=== PATIENT | female | born 1965 | race Caucasian/White ===

== ENCOUNTER → 2024-04-16 18:17 | Outpatient (REF) | payer BC, SELFPAY | LOC: RAD 18:17 | PROVIDERS: ATTENDING PHYSICIAN Physician Assistant Medical | DX: G89.29 Other chronic pain (principal) | CPT/HCPCS: 72110 ==

== ENCOUNTER → 2024-09-03 17:49 | Outpatient (REF) | payer BC, SELFPAY | LOC: WDC 17:49 | PROVIDERS: ATTENDING PHYSICIAN Physician Assistant Medical | DX: Z12.31 Encounter for screening mammogram for malignant neoplasm of breast (principal) | CPT/HCPCS: 77063; 77067 ==

== ENCOUNTER 2024-11-13 09:14 | Emergency (ER) | payer BC, SELFPAY ==
[2024-11-13 09:16] VITALS: BP 170/86
[2024-11-13 09:46] LABS: % Basophils 0.3 % (0-2); % Eosinophils 0.1 % (0-6); % Immature Granulocytes 0.4 % (0-0.5); % Lymphocytes 15.6 % (20.5-51.1); % Monocytes 7.1 % (1.7-9.3); % Neutrophils 76.5 % (42.2-75.2); Absolute Lymphocytes 1.6 10^3/uL (1.2-3.4); Absolute Monocytes 0.7 10^3/uL (0.1-0.6); Absolute Neutrophils 7.9 10^3/uL (1.4-6.5); Hematocrit 40.6 % (37.0-47.0); Hemoglobin 13.8 g/dL (12.0-16.0); Mean Corpuscular Hgb 30.9 pg (27.0-31.0); Mean Corpuscular Volume 90.8 fL (81.0-99.0); Mean Platelet Volume 10.5 fL (7.4-10.4); Nucleated Red Blood Cells % 0 %; Platelet Count 236 10^3/uL (130-400); Red Blood Cell Count 4.47 10^6/uL (4.20-5.40); Red Cell Dist. Width 13.4 % (11.5-14.5); White Blood Cell Count 10.3 10^3/uL (4.8-10.8)
[2024-11-13 09:56] LABS: ALT (SGPT) 15 U/L (0-35); AST (SGOT) 16 U/L (14-36); Albumin 4.8 g/dl (3.5-5.0); Alkaline Phosphatase 65 U/L (38-126); Blood Urea Nitrogen 20 mg/dl (7-17); Calcium 9.6 mg/dl (8.4-10.2); Carbon Dioxide 32 mmol/L (22-30); Chloride 95 mmol/L (98-107); Glucose 117 mg/dl (70-99); Potassium 4.6 mmol/L (3.5-5.1); Sodium 136 mmol/L (135-145); Total Bilirubin 0.6 mg/dl (0.2-1.3); Total Protein 8.2 g/dl (6.3-8.2); eGFR > 60.00
--- NOTE | 2024-11-13 10:00 | EDRN ---
Dr. Peñaloza in room w /pt at this time.
--- NOTE | 2024-11-13 10:08 | ED.GENMED ---
History of Present Illness
General
Chief Complaint: Headache
Source: patient
Time Seen by Provider: 11/13/24 09:52
History of Present Illness
History of Present Illness:
59-year-old female presents to the emergency room complaining of 'headache'. Patient's been having pain that appears to be located primarily anterior to his right ear. She began having the pain 4 days ago. Patient was seen at [facility] emergency
room after the pain started. She had a CAT scan but she does not know the results of it. She was started on antibiotics and prednisone. Pain has continued. She denies having any fever or chills. She denies any associated nausea vomiting
diarrhea or constipation. She denies cough, sore throat or shortness of breath. She cannot recall any particular event that started the pain. It just sort of began sometime during the day. No injuries. She does not believe she grinds her teeth.
She does not have a history of TMJ.
Phy Exam
Physical Exam
Physical Exam:
General: Awake, Alert, Oriented X3. No acute distress.
Vitals: unremarkable
Head: Atraumatic
Eyes: Pupils equal, EOMI
Ears: Normal inspection the ears bilaterally, tympanic membranes appear normal bilaterally
Face: There is tenderness to palpation anterior to the ear over the temporomandibular joint. There is mild erythema which the patient states developed from her rubbing the area.
Throat: Airway intact, no exudates
Neck: Trachea midline
Lungs: Clear and equal b/l
Heart: Regular rate, no murmurs
Abd: Soft, Nontender, No pulsatile mass
Rectal:
Neuro: Cranial nerves intact, muscle strength equal bilaterally, cerebellar exam normal
Skin: Warm, dry, no rash
Extremities: pulses equal b/l, no edema
Course
Orders/Labs/Results
Orders:
Orders
11/13/24 09:26
Complete Blood Count/With Diff Urgent
Comprehensive Metabolic Panel Urgent
11/13/24 10:23
Carbamazepine [Tegretol] 200 mg PO NOW STA
Abnormal Lab Results
11/13/24
09:26
MPV 10.5 H fL
(7.4-10.4)
Absolute Neuts (auto) 7.9 H 10^3/uL
(1.4-6.5)
Absolute Monos (auto) 0.7 H 10^3/uL
(0.1-0.6)
Neutrophils % 76.5 H %
(42.2-75.2)
Lymphocytes % 15.6 L %
(20.5-51.1)
Chloride 95 L mmol/L
(98-107)
Carbon Dioxide 32 H mmol/L
(22-30)
BUN 20 H mg/dl
(7-17)
Glucose 117 H mg/dl
(70-99)
11/13/24 09:26
11/13/24 09:26
Vital Signs
Initial and Last Documented VS:
Initial Vital Signs
Temp Pulse Resp BP Pulse Ox
98.9 F 66 20 170/86 99
11/13/24 09:16 11/13/24 09:16 11/13/24 09:16 11/13/24 09:16 11/13/24 09:16
Last Documented Vital Signs
Temp Pulse Resp BP Pulse Ox
98.9 F 64 16 161/75 99
11/13/24 09:16 11/13/24 10:22 11/13/24 10:22 11/13/24 10:22 11/13/24 10:22
MDM/Problems Addressed
Differential Diagnosis Includes:
TMJ, trigeminal neuralgia, zoster
MDM/Problems Addressed:
Patient presents with lancinating pain right face. I would expect a rash to have developed by this point should have been zoster. She does have pain with opening closing her mouth but no history of TMJ. Most likely this is trigeminal neuralgia.
Will start the patient on Tegretol have her follow-up with neurology and her primary care provider
*Pulse Oximetry
Patient hypoxic: no
*Critical Care Note
Total Time (30-74mins, 75-104mins- exclusive of procedures): Not Applicable
ED Attending Note
-
Portions of this chart may have been created with voice recognition software.� Occasional wrong word or��sound alike� substitutions may have occurred due to the inherent limitations of voice recognition software.
Discharge Plan
Departure
Patient Disposition: Home (Routine Discharge)
Date of Disposition: 11/13/24
Time of Disposition: 10:24
Patient with high blood pressure during this ER visit?: No
Condition: Good
Discharge Problem:
Trigeminal neuralgia of right side of face
Instructions: Trigeminal neuralgia
Prescriptions:
New
carbamazepine 200 mg capsule, ER multiphase 12 hr
200 mg PO BID Qty: 30 0RF
Referrals:
Tab Alvarenga MD [Active] -
UNKNOWN - PT DOES,NOT KNOW [Family Provider] -
Interventions
Interventions:
*Risk Screen - Suicide Last Done: 11/13/24 09:16
*General Assessment Last Done: 11/13/24 10:10
*Neglect/Abuse Screening Last Done: 11/13/24 10:12
ED- Fall Risk Assessment Last Done: 11/13/24 10:13
*ED COVID-19 Vaccine History Last Done: 11/13/24 10:10
*Nursing Disposition Last Done: 11/13/24 10:50
ED- Neurological Assessment Last Done: 11/13/24 10:13
Discharge Date and Time
Discharge Date/Time: 11/13/24 10:50
Print Language: TAJIK
--- NOTE | 2024-11-13 10:14 | EDRN ---
Pt states pain is throbbing and shooting. Pain w/ opening and closing her jaw. Unable to chew hard foods. Pt taking tylenol and a methocarbinol (NSAID).
--- NOTE | 2024-11-13 10:16 | EDRN ---
Pt was informed that it is possibly Trigeminal neuralgia.
--- NOTE | 2024-11-13 10:18 | EDRN ---
Dr. Peñaloza in room w/ pt.
[2024-11-13 10:20] VITALS: BMI 29.7
[2024-11-13 10:22] VITALS: BP 161/75
[2024-11-13] MEDS: TEGRETOL 200 MG PO (10:43)
== END 2024-11-13 10:50 | disposition home or self-care (01) ==
LOC: EMR 09:14
PROVIDERS: EMERGENCY PHYSICIAN Emergency Medicine
DX: G50.0 Trigeminal neuralgia (principal)
CPT/HCPCS: 99283; 80053; 85025

== ENCOUNTER → 2024-11-14 12:27 | Outpatient (REF) | payer BC, SELFPAY | LOC: PAVMRI 12:27 | PROVIDERS: ATTENDING PHYSICIAN Physician Assistant Medical | DX: R68.84 Jaw pain (principal) | CPT/HCPCS: 70551 ==

== ENCOUNTER 2024-11-19 22:04 | Inpatient (IN) | payer BC, SELFPAY ==
[2024-11-19] VITALS (7 sets, daily range): BP systolic 122–200; BP diastolic 69–110; BMI 28.9
--- NOTE | 2024-11-19 15:27 | ED.GENMED ---
ED Provider Triage
<Elizabet Seymour PA-C - Last Filed: 11/19/24 15:30>
-
Patient seen by provider in Triage?: Seen in Triage
Attestation: A medical screening examination has been initiated by a qualified medical provider. Based on the assessment performed at this time, it has been determined that an emergent medical condition may exist and the patient has been informed
that further medical evaluation and possible additional diagnostic testing may be needed.
HPI: 59yoF sent in by neurology for concern for encephalitis. Started with R ear pain x 1.5 weeks. No improvement with prednisone. Went to ED and was diagnosed with trigeminal neuralgia. Coworker is a PA who saw some vesicles in her ear and
started her on Valtrex and gabapentin about 4 days ago for shingles. Has reportedly been confused, slurring her words, and trouble with gait since yesterday. Neuro concerned for HSV encephalitis and recommending IV antivirals.
GENERAL: Alert , in no apparent distress
EYE: No visual abnormalities.
NECK: Trachea midline
ENT: No visible abnormalities.
LUNGS: No acute respiratory distress
NEUROLOGICAL: Alert and oriented
SKIN: Skin intact. No visible changes.
MUSCULOSKELETAL: Moving extremities normally
PSYCH: Normal and appropriate interaction.
This is a medical evaluation conducted in person to initiate diagnostic evaluation and provide initial therapeutics. Please see further documentation by the treating clinician.
Patient A&Ox4 in triage. CBC, CMP, TSH, UA, and EKG ordered. Patient had MRI brain 5 days ago which only showed mild R sinusitis.
History of Present Illness
<Elizabet Seymour PA-C - Last Filed: 11/19/24 15:30>
General
Chief Complaint: Change in Mental Status
Time Seen by Provider: 11/19/24 17:49
<Shefali Wray PA-C - Last Filed: 11/19/24 22:35>
General
Source: patient
Exam Limitations: none
History of Present Illness
History of Present Illness:
This is a 59-year-old female with past medical history of hypothyroidism presents emergency department today with concerns of altered mental status and possible zoster encephalitis. About a week and a half ago, patient got a sudden onset of ear
pain and facial pain. She was treated with prednisone. On the , she was seen in our emergency department with concerns of a headache right ear pain and facial pain. She was started on carbamazepine for possible trigeminal neuralgia. Her
symptoms did not improve. She then developed a sudden facial rash on the same side as the ear pain and was diagnosed with shingles by her primary care provider and she was started on Valtrex and gabapentin 300 3 times daily. She started to develop
confusion, short-term memory loss, as well as slurred speech since. Patient is present with her son and states that she has not been acting her normal self. She was referred to neurologist Dr. Bautista with [facility] who she saw this morning
for an appointment and who expressed concern about zoster encephalitis and was sent to the ER for direct admission and IV acyclovir.
Review of Systems
<Shefali Wray PA-C - Last Filed: 11/19/24 22:35>
Review of Systems
All Other Systems: ROS reviewed and negative except as documented in HPI and ROS
Phy Exam
<Shefali Wray PA-C - Last Filed: 11/19/24 22:35>
Physical Exam
Physical Exam:
General: Patient is well appearing and in no acute distress; non-toxic
Skin: Warm and dry, small crusted over lesion noted to right cheek
Head: Normocephalic, atraumatic
Eyes: Sclera non-icteric. EOMs intact. PERRLA.
Ears: No lesions noted within either ear auricle
Cardiac: Regular rate and rhythm, no murmurs
Peripheral Vascular: No lower ext swelling or edema
Pulm: Normal respiratory effort, no wheezes, rales, or rhonchi
Abdomen: No abdominal tenderness to palpation
Neuro: CN II-XII intact, no focal neurologic deficits. No nuchal rigidity.
Psychiatric: Appropriate mood and affect.
Course
<Elizabet Seymour PA-C - Last Filed: 11/19/24 15:30>
Orders/Labs/Results
Orders:
Orders
11/19/24 Dinner
Regular
11/19/24 15:25
Electrocardiogram (*1) Urgent
Reason for Study: Fatigue / Weakness
EKG- Treatment ONCE
11/19/24 15:32
Complete Blood Count/With Diff Urgent
Comprehensive Metabolic Panel Urgent
TSH Reflex To Free T4 Urgent
11/19/24 15:34
Urinalysis Reflex To Culture Urgent
Date Specimen was Collected: 11/19/24
Time Specimen was Collected: 15:33
Urine Microscopic Reflex Cult Urgent
11/19/24 19:01
Acyclovir [Zovirax Injection] 811 mg 0.9% Sodium Chloride 250 ml [Nss] 250 ml IV NOW
11/19/24 19:12
Acid Fast Culture & Smear Urgent
RANJEET Source: Csf
Specimen Description:
CSF Cell Count Urgent
CSF Tube Number: 1
Comment: Tube #1
Spinal Fluid Glucose Urgent
Spinal Fluid Protein Urgent
CSF Culture with Gram Stain Urgent
RANJEET Source: Csf
Specimen Description:
Gram Stain Urgent
RANJEET Source: Csf
Specimen Description:
Meningitis Panel, CSF by PCR Urgent
RANJEET Source: Csf
Specimen Description:
11/19/24 19:45
Blood Culture Q30M
RANJEET Source: Blood/Venous
Specimen Description:
Comment: IF NOT OBTAINED IN ED
11/19/24 20:30
Lyme PCR, DNA [S] Urgent
11/19/24 20:36
Lactic Acid Q4H
Comment: repeat q4 hours x 4 or until less than 2 mmol/L
Blood Culture Q30M
RANJEET Source: Blood/Venous
Specimen Description:
Comment: IF NOT OBTAINED IN ED
11/19/24 21:27
Admit/Transfer Patient As Directed
Co-Sign Provider:
Level of Care: Inpatient admission
Assign to:: Telemetry
Physician / Group: hospitalist
Diagnosis: zoster infection
Reason for Telemetry: CVA/TIA
Date to Stop Telemetry: 11/22/24
Time to Stop Telemetry: 11:00
Reason for Hospitalization: zoster encephalitis
Expected length of stay greater than two midnights?: Yes
ELOS- Estimated Length of Stay in days: 2
I certify the patient meets the requirements for IP care: Yes
Code Status As Directed
Resuscitation Status: Full Code
PRN Pain Medication Management As Directed
May give lesser potent ordered pain med per pt: Yes
preference::
Protocol:: Medication orders for pain may be administered in a
manner that supports deferring to patient preference
when the pt is:
- Requesting an ordered lesser potent pain medication.
Least to most potent pain medications are defined
as: acetaminophen < NSAID < tramadol < opioids
(morphine, oxycodone, hydromorphone).
- Requesting a lesser dose of the same medication IF
ORDERED.
- Requesting a less intrusive route of administration
if both routes are prescribed by the provider (PO <
IV).
11/19/24 21:33
PRN Pain Medication Management As Directed
May give lesser potent ordered pain med per pt: Yes
preference::
Protocol:: Medication orders for pain may be administered in a
manner that supports deferring to patient preference
when the pt is:
- Requesting an ordered lesser potent pain medication.
Least to most potent pain medications are defined
as: acetaminophen < NSAID < tramadol < opioids
(morphine, oxycodone, hydromorphone).
- Requesting a lesser dose of the same medication IF
ORDERED.
- Requesting a less intrusive route of administration
if both routes are prescribed by the provider (PO <
IV).
11/19/24 22:20
Acetaminophen [Tylenol] 650 mg PO Q4HPRN PRN
Bisacodyl [Dulcolax] 10 mg RECTAL [id number] PRN
Docusate W/Senna [Senokot-S] 1 tablet PO BIDPRN PRN
Ondansetron Injectable [Zofran] 4 mg IV Q6HPRN PRN
Oxycodone [Roxicodone] 5 mg PO Q4HPRN PRN
Polyethylene Glycol Powder [Miralax] 17 grams PO DAILYPRN PRN
11/19/24 22:20
MRI Brain [MR Brain With Contrast] Routine
Comment:
Reason For Exam: acute mental status change, encephalitis vs stroke
Recent pill cam endoscopy?: No
Activity As Directed
Activity Level: With Assistance
Neurological Checks As Directed
Frequency: Per unit guidelines
Vital Signs As Directed
Frequency: Per unit guidelines
DX Deep Vein Thrombosis Video Routine
11/20/24 04:00
Acyclovir [Zovirax Injection] 811 mg 0.9% Sodium Chloride 250 ml [Nss] 250 ml IV Q8H
11/20/24 06:00
Basic Metabolic Panel IN AM
Complete Blood Count/No Diff IN AM
Levothyroxine [Synthroid] 75 mcg PO DAILY @ 0600
11/20/24 08:00
Carbamazepine Extended Release [Tegretol Xr (Extended Release)] 200 mg PO BID
11/20/24 18:00
Enoxaparin Sodium [Lovenox] 40 mg SC QPM
11/22/24 11:00
DC Protocol for Telemetry ONCE
Abnormal Lab Results
11/19/24 11/19/24
15:32 15:34
WBC 13.1 H 10^3/uL
(4.8-10.8)
Abs Immat Gran (auto) 0.1 H 10^3/uL
(0-0.05)
Absolute Neuts (auto) 10.3 H 10^3/uL
(1.4-6.5)
Immature Gran % 0.8 H %
(0-0.5)
Neutrophils % 78.4 H %
(42.2-75.2)
Lymphocytes % 16.6 L %
(20.5-51.1)
Sodium 134 L mmol/L
(135-145)
Chloride 96 L mmol/L
(98-107)
Glucose 147 H mg/dl
(70-99)
Ur Occult Blood Reflex 4+ A
(Negative)
Urine RBC 11-15 A /HPF
(0-2)
Urine Bacteria (Reflex) Few A
(Negative)
Urine Albumin (Reflex) 1+ A
(Neg - Trace)
11/19/24 15:32
11/19/24 15:32
Vital Signs
Initial and Last Documented VS:
Initial Vital Signs
Temp Pulse Resp BP Pulse Ox
98.2 F 87 16 200/106 98
11/19/24 15:17 11/19/24 15:17 11/19/24 15:17 11/19/24 15:17 11/19/24 15:17
Last Documented Vital Signs
Temp Pulse Resp BP Pulse Ox
97.8 F 81 16 172/98 99
11/19/24 19:49 11/19/24 19:46 11/19/24 19:46 11/19/24 17:45 11/19/24 17:45
<Shefali Wray PA-C - Last Filed: 11/19/24 22:35>
Orders/Labs/Results
Orders:
Orders
11/19/24 Dinner
Regular
11/19/24 15:25
Electrocardiogram (*1) Urgent
Reason for Study: Fatigue / Weakness
EKG- Treatment ONCE
11/19/24 15:32
Complete Blood Count/With Diff Urgent
Comprehensive Metabolic Panel Urgent
TSH Reflex To Free T4 Urgent
11/19/24 15:34
Urinalysis Reflex To Culture Urgent
Date Specimen was Collected: 11/19/24
Time Specimen was Collected: 15:33
Urine Microscopic Reflex Cult Urgent
11/19/24 19:01
Acyclovir [Zovirax Injection] 811 mg 0.9% Sodium Chloride 250 ml [Nss] 250 ml IV NOW
11/19/24 19:12
Acid Fast Culture & Smear Urgent
RANJEET Source: Csf
Specimen Description:
CSF Cell Count Urgent
CSF Tube Number: 1
Comment: Tube #1
Spinal Fluid Glucose Urgent
Spinal Fluid Protein Urgent
CSF Culture with Gram Stain Urgent
RANJEET Source: Csf
Specimen Description:
Gram Stain Urgent
RANJEET Source: Csf
Specimen Description:
Meningitis Panel, CSF by PCR Urgent
RANJEET Source: Csf
Specimen Description:
11/19/24 19:45
Blood Culture Q30M
RANJEET Source: Blood/Venous
Specimen Description:
Comment: IF NOT OBTAINED IN ED
11/19/24 20:30
Lyme PCR, DNA [S] Urgent
11/19/24 20:36
Lactic Acid Q4H
Comment: repeat q4 hours x 4 or until less than 2 mmol/L
Blood Culture Q30M
RANJEET Source: Blood/Venous
Specimen Description:
Comment: IF NOT OBTAINED IN ED
11/19/24 21:27
Admit/Transfer Patient As Directed
Co-Sign Provider:
Level of Care: Inpatient admission
Assign to:: Telemetry
Physician / Group: hospitalist
Diagnosis: zoster infection
Reason for Telemetry: CVA/TIA
Date to Stop Telemetry: 11/22/24
Time to Stop Telemetry: 11:00
Reason for Hospitalization: zoster encephalitis
Expected length of stay greater than two midnights?: Yes
ELOS- Estimated Length of Stay in days: 2
I certify the patient meets the requirements for IP care: Yes
Code Status As Directed
Resuscitation Status: Full Code
PRN Pain Medication Management As Directed
May give lesser potent ordered pain med per pt: Yes
preference::
Protocol:: Medication orders for pain may be administered in a
manner that supports deferring to patient preference
when the pt is:
- Requesting an ordered lesser potent pain medication.
Least to most potent pain medications are defined
as: acetaminophen < NSAID < tramadol < opioids
(morphine, oxycodone, hydromorphone).
- Requesting a lesser dose of the same medication IF
ORDERED.
- Requesting a less intrusive route of administration
if both routes are prescribed by the provider (PO <
IV).
11/19/24 21:33
PRN Pain Medication Management As Directed
May give lesser potent ordered pain med per pt: Yes
preference::
Protocol:: Medication orders for pain may be administered in a
manner that supports deferring to patient preference
when the pt is:
- Requesting an ordered lesser potent pain medication.
Least to most potent pain medications are defined
as: acetaminophen < NSAID < tramadol < opioids
(morphine, oxycodone, hydromorphone).
- Requesting a lesser dose of the same medication IF
ORDERED.
- Requesting a less intrusive route of administration
if both routes are prescribed by the provider (PO <
IV).
11/19/24 22:20
Acetaminophen [Tylenol] 650 mg PO Q4HPRN PRN
Bisacodyl [Dulcolax] 10 mg RECTAL [id number] PRN
Docusate W/Senna [Senokot-S] 1 tablet PO BIDPRN PRN
Ondansetron Injectable [Zofran] 4 mg IV Q6HPRN PRN
Oxycodone [Roxicodone] 5 mg PO Q4HPRN PRN
Polyethylene Glycol Powder [Miralax] 17 grams PO DAILYPRN PRN
11/19/24 22:20
MRI Brain [MR Brain With Contrast] Routine
Comment:
Reason For Exam: acute mental status change, encephalitis vs stroke
Recent pill cam endoscopy?: No
Activity As Directed
Activity Level: With Assistance
Neurological Checks As Directed
Frequency: Per unit guidelines
Vital Signs As Directed
Frequency: Per unit guidelines
DX Deep Vein Thrombosis Video Routine
11/20/24 04:00
Acyclovir [Zovirax Injection] 811 mg 0.9% Sodium Chloride 250 ml [Nss] 250 ml IV Q8H
11/20/24 06:00
Basic Metabolic Panel IN AM
Complete Blood Count/No Diff IN AM
Levothyroxine [Synthroid] 75 mcg PO DAILY @ 0600
11/20/24 08:00
Carbamazepine Extended Release [Tegretol Xr (Extended Release)] 200 mg PO BID
11/20/24 18:00
Enoxaparin Sodium [Lovenox] 40 mg SC QPM
11/22/24 11:00
DC Protocol for Telemetry ONCE
Abnormal Lab Results
11/19/24 11/19/24
15:32 15:34
WBC 13.1 H 10^3/uL
(4.8-10.8)
Abs Immat Gran (auto) 0.1 H 10^3/uL
(0-0.05)
Absolute Neuts (auto) 10.3 H 10^3/uL
(1.4-6.5)
Immature Gran % 0.8 H %
(0-0.5)
Neutrophils % 78.4 H %
(42.2-75.2)
Lymphocytes % 16.6 L %
(20.5-51.1)
Sodium 134 L mmol/L
(135-145)
Chloride 96 L mmol/L
(98-107)
Glucose 147 H mg/dl
(70-99)
Ur Occult Blood Reflex 4+ A
(Negative)
Urine RBC 11-15 A /HPF
(0-2)
Urine Bacteria (Reflex) Few A
(Negative)
Urine Albumin (Reflex) 1+ A
(Neg - Trace)
11/19/24 15:32
11/19/24 15:32
Vital Signs
Initial and Last Documented VS:
Initial Vital Signs
Temp Pulse Resp BP Pulse Ox
98.2 F 87 16 200/106 98
11/19/24 15:17 11/19/24 15:17 11/19/24 15:17 11/19/24 15:17 11/19/24 15:17
Last Documented Vital Signs
Temp Pulse Resp BP Pulse Ox
97.8 F 81 16 172/98 99
11/19/24 19:49 11/19/24 19:46 11/19/24 19:46 11/19/24 17:45 11/19/24 17:45
Marinalt;Shefali Wray PA-C - Last Filed: 11/19/24 22:35>
MDM/Problems Addressed
Differential Diagnosis Includes:
viral meningitis, zoster encephalitis, medication side affect, stroke
MDM/Problems Addressed:
59-year-old female with past medical history of hypothyroidism who was sent here for possible herpes encephalitis. Her symptoms started with facial pain a week and a half ago developed herpetic rash. She started develop some signs of altered
mental status. She was seen by Dr. Michele Mcmahanthe [facility] neurologist who sent her to emergency department concern for zoster encephalitis, she was sent for direct admission for MRI and IV acyclovir. Reviewed case with infectious disease,
reviewed case with interventional radiology, patient will need LP for further characterization of diagnosis. Patient referred for admission. Case discussed with hospitalist.
Chronic conditions affecting care:
hypothyroidism
<Shefali Wray PA-C - Last Filed: 11/19/24 22:35>
*Pulse Oximetry
Patient hypoxic: no
*Critical Care Note
Total Time (30-74mins, 75-104mins- exclusive of procedures): Not Applicable
Data Reviewed
Review of Other/Old Records Reveals: Records (Reviewed ER physician documentation from 11/13/2024 patient seen for facial pain potential trigeminal) and Discharge Summary (No discharge summaries in [facility] to review)
Source: patient and records
ED Attending Note
<Elizabet Seymour PA-C - Last Filed: 11/19/24 15:30>
-
Portions of this chart may have been created with voice recognition software.� Occasional wrong word or��sound alike� substitutions may have occurred due to the inherent limitations of voice recognition software.
Discharge Plan
Departure
Patient Disposition: Admit
Date of Disposition: 11/19/24
Time of Disposition: 19:02
Admit to: Med/Surg
Presentation/result/management discussed w/ accepting MD/DO: Hospitalist
Patient with high blood pressure during this ER visit?: Yes
Condition: Fair
Discharge Problem:
Altered mental status, Herpes zoster
Interventions
Interventions:
*Risk Screen - Suicide Last Done: 11/19/24 15:17
*General Assessment Last Done: 11/19/24 17:45
*Neglect/Abuse Screening Last Done: 11/19/24 15:17
*ED COVID-19 Vaccine History Last Done: 11/19/24 17:45
ED- Cardiac Assessment Last Done: 11/19/24 20:46
ED- Neurological Assessment Last Done: 11/19/24 20:46
ED- Pulmonary Assessment Last Done: 11/19/24 20:46
ED Swallowing Screen Last Done: 11/19/24 20:46
[2024-11-19 15:43] LABS: % Basophils 0.2 % (0-2); % Immature Granulocytes 0.8 % (0-0.5); % Lymphocytes 16.6 % (20.5-51.1); % Neutrophils 78.4 % (42.2-75.2); Absolute Immature Granulocytes 0.1 10^3/uL (0-0.05); Absolute Lymphocytes 2.2 10^3/uL (1.2-3.4); Absolute Monocytes 0.5 10^3/uL (0.1-0.6); Absolute Neutrophils 10.3 10^3/uL (1.4-6.5); Hematocrit 42.2 % (37.0-47.0); Hemoglobin 14.2 g/dL (12.0-16.0); Mean Corp Hgb Conc. 33.6 g/dL (33.0-37.0); Mean Corpuscular Hgb 30.5 pg (27.0-31.0); Mean Corpuscular Volume 90.8 fL (81.0-99.0); Mean Platelet Volume 9.9 fL (7.4-10.4); Nucleated Red Blood Cells % 0 %; Platelet Count 301 10^3/uL (130-400); Red Blood Cell Count 4.65 10^6/uL (4.20-5.40); White Blood Cell Count 13.1 10^3/uL (4.8-10.8)
[2024-11-19 15:45] LABS: Urine Albumin 1+ (Neg - Trace); Urine Bilirubin Negative (Negative); Urine Character Clear (Clear); Urine Color Yellow; Urine Glucose Negative (Negative); Urine Ketone Negative (Negative); Urine Leukocyte Negative (Negative); Urine Nitrite Negative (Negative); Urine Occult Blood 4+ (Negative); Urine Specific Gravity 1.015 (<1.030); Urine Urobilinogen Negative (Neg - 1+)
[2024-11-19 15:54] LABS: ALT (SGPT) 17 U/L (0-35); AST (SGOT) 17 U/L (14-36); Alkaline Phosphatase 76 U/L (38-126); Blood Urea Nitrogen 15 mg/dl (7-17); Calcium 9.9 mg/dl (8.4-10.2); Carbon Dioxide 28 mmol/L (22-30); Chloride 96 mmol/L (98-107); Glucose 147 mg/dl (70-99); Potassium 3.9 mmol/L (3.5-5.1); Sodium 134 mmol/L (135-145); Total Bilirubin 0.6 mg/dl (0.2-1.3); Total Protein 8.2 g/dl (6.3-8.2); eGFR > 60.00
[2024-11-19 16:08] LABS: Urine Bacteria Few (Negative); Urine Squamous Cell 0-2 /LPF (Few); Urine White Cell 0-2 /HPF (0-5)
[2024-11-19 16:24] LABS: TSH Reflex To Free T4 2.06 uIU/ml (0.47-4.68)
[2024-11-19] MEDS: ZOVIRAX INJECTION 266.22 MG IV (20:00)
[2024-11-19 20:56] LABS: Lactic Acid 1.5 mmol/L (0.7-2.0)
--- NOTE | 2024-11-19 21:18 | HPS.HSE ---
Family Physician
-
Family Physician: Filiberto Blandon
Chief Complaint
-
Memory difficulties
History of Present Illness
This is a 59-year-old with past medical history significant for hypothyroidism presenting to the emergency department with memory difficulties after recent diagnosis of shingles affecting the right ear.
Patient reported that she noticed herpes lesions starting about 5 days ago in the right side of her face and around the ears. She started having facial pain as well. 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
syndrome and started her on gabapentin and valacyclovir. Rash is improved. However in the last few days she has developed some slurred speech confusion and short-term memory loss. Followed up with neurologist Dr. Bautista was concerned about.
Encephalitis and sent her to the emergency department for IV cycle of acyclovir and brain MRI with contrast.
Case reviewed with ID. Acyclovir ordered.
In the ED she was hypertensive to 170/90 with a pulse of 77 satting 99% on room air. CBC was mostly unremarkable but she does have a white count of 13.1. Electrolytes BUN/creatinine were stable. UA was unremarkable.
Medical History
Past Medical History
Past Medical History: Reports Hypothyroidism
Past Surgical History: Reports Orthopedic
Social History
Tobacco: Non-smoker
Alcohol: None
Drug: None
Personal: Single
Living: With Family
Employment: Employed
Family History
Family History: Not pertinent
Allergies / Home Medications
Allergies reflects when Allergies were last updated in [facility].
Home Medications with original date entered in [facility]
Allergy/Medication List:
Allergies
Allergy/AdvReac Type Severity Reaction Status Date / Time
No Known Allergies Allergy Verified 11/19/24 15:20
Home Medications
carbamazepine 200 mg capsule,extended release [id number] 200 mg PO BID #30 caps 11/13/24
Review of Systems
-
History Source: Patient
Constitutional: Reports No Symptoms
EENT: Reports No Symptoms
Respiratory: Reports No Symptoms
Cardiac: Reports No Symptoms
Abdomen/GI: Reports No Symptoms
: Reports No Symptoms
Musculoskeletal: Reports No Symptoms
Skin: Reports No Symptoms
Neurological: Reports Headache
Endocrine: Reports No Symptoms
Hematologic/Lymphatic: Reports No Symptoms
Psych: Reports No Symptoms
Physical Exam
Vital Signs
Vital Signs
Temp Pulse Resp BP Pulse Ox
97.8 F 81 16 172/98 99
11/19/24 19:49 11/19/24 19:46 11/19/24 19:46 11/19/24 17:45 11/19/24 17:45
Physical Exam
General: Well Developed, Well Nourished and Conversant
HEENT: NormoCephalic, Anicteric, Moist mucous membranes, Atraumatic, PERRLA, No Ptosis and Other (right sided crusted lesion with erythematous base just anterior to the ear)
Respiratory: Clear
Cardiac: S1/S2 and Regular Rhythm
Breast: Deferred by me
GI: Soft, Non Tender and Non Distended
Rectal: Deferred by Provider
Genito-urinary: Deferred by me
Musculoskeletal: No Clubbing, No Cyanosis and No Edema
Skin: Warm
Neuro: AO x 3, No Motor Deficits, Cranial Nerves Intact and No Sensory Deficits
Hematologic/Lymphatic: No Lymphadenopathy
Psych: Calm
Laboratory Results
-
11/19/24 15:32
11/19/24 15:32
Laboratory Results
Lactic Acid 1.5 mmol/L (0.7-2.0) 11/19/24 20:36
Total Bilirubin 0.6 mg/dl (0.2-1.3) 11/19/24 15:32
AST 17 U/L (14-36) 11/19/24 15:32
ALT 17 U/L (0-35) 11/19/24 15:32
Alkaline Phosphatase 76 U/L (38-126) 11/19/24 15:32
Data Reviewed
-
Lab Data: Labs Reviewed by me
Old Records: Reviewed
Impression/Plan
-
IMPRESSION:
Patient with salcedo urbina and episodes of memory loss, confusion and speech difficulty concerning for herpes encephalitis
PLAN:
1. Herpes Zoster encephalitis
- admit to med/surg
- MRI with/wo contrast
- continue acyclovir
- IR consult for LP - cell count, culture, protein, glucose, viral panel ordered
- continue tegretol 200mg bid
- ID consult
DVT PPx - lovenox sq
Code status - full code
[2024-11-20] VITALS (14 sets, daily range): BP systolic 85–154; BP diastolic 58–94
[2024-11-20] MEDS: ZOVIRAX INJECTION 266.22 MG IV ×2 (04:18→12:47)
[2024-11-20] MEDS: SYNTHROID 75 MCG PO (06:25)
[2024-11-20 07:25] LABS: Blood Urea Nitrogen 14 mg/dl (7-17); Carbon Dioxide 26 mmol/L (22-30); Chloride 103 mmol/L (98-107); Estimated Creatinine Clearance 92 ml/min; Glucose 82 mg/dl (70-99); Potassium 3.7 mmol/L (3.5-5.1); Sodium 138 mmol/L (135-145); eGFR > 60.00
[2024-11-20 07:33] LABS: Hematocrit 32.8 % (37.0-47.0); Mean Corp Hgb Conc. 33.5 g/dL (33.0-37.0); Mean Corpuscular Hgb 31.3 pg (27.0-31.0); Mean Corpuscular Volume 93.4 fL (81.0-99.0); Mean Platelet Volume 9.9 fL (7.4-10.4); Platelet Count 221 10^3/uL (130-400); Red Blood Cell Count 3.51 10^6/uL (4.20-5.40); Red Cell Dist. Width 14.2 % (11.5-14.5); White Blood Cell Count 9.4 10^3/uL (4.8-10.8)
--- NOTE | 2024-11-20 07:40 | W.PN.HOSP.TC ---
Today's Communication/Plan
-
Continue IV Acyclovir
LP
EEG
Assessment / Plan
Assessment / Plan
Physical Exam
General: Well Developed, Well Nourished and Conversant
HEENT: Normocephalic, Moist mucous membranes. Right sided crusted lesion with erythematous base just anterior to the ear.
Respiratory: Clear
Cardiac: S1/S2 and Regular Rhythm
GI: Soft, Non Tender and Non Distended. Positive bowel sounds.
Musculoskeletal: No Cyanosis and No Edema
Skin: Warm. Dry.
Neuro: AO x 3, No Motor Deficits, Cranial Nerves Intact and No Sensory Deficits
Psych: Calm
Assessment/Plan
Patient with salcedo woo and episodes of memory loss, confusion and speech difficulty concerning for herpes encephalitis
Encephalopathy(vascular, infectious, toxic?)
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
- admit to med/surg
- MRI with/wo contrast
- continue acyclovir
- IR consult for LP - cell count, culture, protein, glucose, viral panel ordered
- continue tegretol 200mg bid
- Check Tegretol level
- ID consult
- Patient sees neurologist Dr. Melo Bautista outpatient, consulted inpatient neurology here given complex neuro case
- Aspirin 81 mg daily
- CTA head and neck
- Routine EEG
DVT PPx - lovenox sq
Code status - full code
Anticipated Discharge: > 48 hours
Subjective/Interval History
-
Date of Service: November 20, 2024
Patient was seen and examined. She reported continued headache symptoms.
Objective Data
-
Labs:
Laboratory Results
11/20/24 11/20/24
06:43 07:14
WBC 9.4
Hgb 11.0 L D
Hct 32.8 L
Plt Count 221 D
PT Pending
INR Pending
Sodium 138
Potassium 3.7
Chloride 103
Carbon Dioxide 26
BUN 14
Creatinine 0.7
Glucose 82
Calcium 8.0 L D
Vital Signs:
Vital Signs
Temp Pulse Resp BP Pulse Ox
97.5 F 76 16 120/72 99
11/20/24 06:52 11/20/24 06:45 11/20/24 06:52 11/20/24 06:00 11/19/24 17:45
[2024-11-20] MEDS: TEGRETOL XR (EXTENDED RELEASE) 200 MG PO ×2 (08:14→20:28)
--- NOTE | 2024-11-20 08:53 | CON.NEURO ---
Consultation
Order
Date of Consultation: 11/20/24
Requesting Provider: Tulio Carmona MD
Reason for Consult: Israel-Urbina syndrome
Neurology Consultation Note.
HPI: This is a 59-year-old woman who presented to [facility] on 11/19/2024 with encephalopathy. Ms. Mena reports gradual in onset dysarthria and expressive dysphasia which started yesterday.
No reports of headaches, fever, tinnitus, ear pain change in vision, strength, balance or sensation, neck stiffness.
Ms. Mena was seen at [facility] ER on 11/13/2024 with right ear pain. Brain MRI at that time was unremarkable. She was started on Tegretol that was subsequently switched to gabapentin for pain control. The patient recalls developing
right periauricular vesicular rash (unable to specify the timing).
ER VS: 200/106, 87, afebrile.
EKG: NSR, QTc Int : 446 ms
PDMP:Tramadol Hcl 50 Mg 30 tabs filled in on 07/31/2024
Labs: WBCs�13.1, sodium�134, glucose�147, normal TSH, UA�positive for albumin bacteria, RBCs,
Brain MRI�increased FLAIR signal intensity throughout the sulci of both cerebral hemispheres which appears most conspicuous in the right frontal and parietal lobes. No abnormal leptomeningeal enhancement.
PMH: hypothyroidism, OA, vitamin D deficiency,
PSH: B/L JAMES 07/23/24, L5-S1 JAMES 06/30/24
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
FH: Father from cancer, mother from COVID
All: Nitrofurantoin, gabapentin
ROS: Constitutional: Negative. Negative for chills, fever and unexpected weight change.
HENT: Positive for recent right ear pain
Eyes: Negative. Negative for photophobia, pain and visual disturbance.
Respiratory: Negative for cough, choking and shortness of breath.
Cardiovascular: Negative for chest pain, palpitations and leg swelling.
Gastrointestinal: Negative for abdominal pain and vomiting.
Endocrine: Negative. Negative for cold intolerance.
Genitourinary: Negative for dysuria, flank pain and urgency.
Musculoskeletal: Negative for back pain, gait problem, neck pain and neck stiffness.
Skin: Positive for resolved right periauricular vesicular rash
Allergic/Immunologic: Negative. Negative for immunocompromised state.
Neurological: Positive for dysarthria, encephalopathy
Psychiatric/Behavioral: Negative for behavioral problems, confusion and hallucinations.
General: Well developed. In no acute distress.
Cardio: Regular rate and rhythm without murmur. Extremities are without cyanosis or edema.
Neuro:
Mental Status: Alert, oriented to person, place, date was incorrect but close. Increased processing time. Poor attention and preserved comprehension. Follows complex requests across the midline. Comprehension, naming, and repetition intact.
Cranial Nerves: Pupils are equally round and reactive to light. EOMs full. Visual marinelli full to confrontation. No ptosis. No nystagmus. V1-V3 intact to light touch and pinprick bilaterally, symmetric. Face symmetric. Normal hearing AU. The
palate elevated well. SCMs and traps 5/5. Tongue midline. Moderate dysarthria.
Motor: Normal bulk and tone. No pronator or arm drift. Strength 5/5 throughout. No clonus.
Reflexes: 3+ throughout. Positive Suman's bilaterally. Jaw jerk�equivocal
Sensory: Normal vibration at the toes
Coordination: No dysmetria or tremor.
Gait: deferred
Skin�hemorrhagic dry rash in anterior auricular region.
Assessment and Plan:
I. Encephalopathy(vascular, infectious, toxic?)
II. Pathological hyperreflexia
III. Encephalopathy(vascular, toxic?)
-Continue Telemetry monitoring
-Cautious lowering of BP by approximately 15% during the first 24 hours is SBP >220 mmHg or diastolic blood pressure >120 mmHg
-Start ASA 81 mg QD indefinitely
-Please check Tegretol level
-CTA head and neck
-Routine EEG
-CSF(OP/CP, cell count, protein, glucose, meningitis, encephalitis panels)
-ID consult
-DVT prophylaxis.
I personally reviewed all radiology and labs along with past medical records pertinent to current medical problems. Total time spent in patient care is 60 minutes.
Thank you for allowing us to participate in the care of this patient. We will continue to follow. Please do not hesitate to contact us with any questions or concerns.
Subjective/Objective
Subjective Data
Date of Service: November 20, 2024
Objective Data
Vital Signs
Temp Pulse Resp BP Pulse Ox
36.6 C 76 13 149/86 99
11/20/24 08:27 11/20/24 08:17 11/20/24 08:17 11/20/24 08:17 11/19/24 17:45
Lab Results
11/20/24 06:43
11/20/24 06:43
Sodium 138 mmol/L (135-145) 11/20/24 06:43
Potassium 3.7 mmol/L (3.5-5.1) 11/20/24 06:43
BUN 14 mg/dl (7-17) 11/20/24 06:43
Glucose 82 mg/dl (70-99) 11/20/24 06:43
Calcium 8.0 mg/dl (8.4-10.2) L D 11/20/24 06:43
Patient Allergies
No Known Allergies Allergy (Verified 11/19/24 15:20)
Medications
-
Active Medications
Generic Name Dose Route Start Last Admin
Trade Name Freq PRN Reason Stop Dose Admin
Acetaminophen 650 mg 11/19/24 22:20
Acetaminophen 325 Mg Tablet PO 12/17/24 22:19
Q4HPRN PRN
mild pain/RODGERS/temp> 100.4F
Bisacodyl 10 mg 11/19/24 22:20
Bisacodyl 10 Mg Rectal Suppository RECTAL 12/17/24 22:19
[id number] PRN
constipation
Carbamazepine 200 mg 11/20/24 08:00 11/20/24 08:14
Carbamazepine 100 Mg Extended Release (12 Hour) Tablet PO 12/18/24 07:59 200 mg
BID RIVERA Administration
Enoxaparin Sodium 40 mg 11/20/24 18:00
Enoxaparin Sodium 40 Mg/0.4 Ml Syringe SC 12/18/24 17:59
QPM RIVERA
Acyclovir Sodium 811 mg/ 266.22 mls @ 250 mls/hr 11/20/24 04:00 11/20/24 04:18
Sodium Chloride IV 11/30/24 03:59 266.22 mls
Q8H RIVERA Administration
Levothyroxine Sodium 75 mcg 11/20/24 06:00 11/20/24 06:25
Levothyroxine 75 Mcg Tablet PO 12/18/24 05:59 75 mcg
DAILY @ 0600 RIVERA Administration
Ondansetron HCl 4 mg 11/19/24 22:20
Ondansetron 4 Mg/2 Ml Vial IV 12/17/24 22:19
Q6HPRN PRN
nausea and vomiting
Oxycodone HCl 5 mg 11/19/24 22:20
Oxycodone 5 Mg Regular Release Tablet PO 12/03/24 22:19
Q4HPRN PRN
moderate pain
Polyethylene Glycol 17 grams 11/19/24 22:20
Polyethylene Glycol Powder 17 Grams Packet PO 12/17/24 22:19
DAILYPRN PRN
constipation
Senna/Docusate Sodium 1 tablet 11/19/24 22:20
Docusate W/Senna (Karly-Colace) Tablet PO 12/17/24 22:19
BIDPRN PRN
constipation
Sodium Chloride 0 flush 11/19/24 23:00
Sodium Chloride 0.9% (Flush) Syringe IV 12/17/24 22:59
PER PROTOCOL RIVERA
Home Medications
�Medication �Instructions �Recorded
carbamazepine 200 mg 200 mg PO BID #30 caps 11/13/24
capsule,extended release [id number]
Vital Signs and Labs
-
Vital Signs and Labs:
Vital Signs
Temp Pulse Resp BP Pulse Ox
36.6 C 76 13 149/86 99
11/20/24 08:27 11/20/24 08:17 11/20/24 08:17 11/20/24 08:17 11/19/24 17:45
Lab Results
11/20/24 06:43
11/20/24 06:43
Sodium 138 mmol/L (135-145) 11/20/24 06:43
Potassium 3.7 mmol/L (3.5-5.1) 11/20/24 06:43
BUN 14 mg/dl (7-17) 11/20/24 06:43
Glucose 82 mg/dl (70-99) 11/20/24 06:43
Calcium 8.0 mg/dl (8.4-10.2) L D 11/20/24 06:43
Medications
-
Medications:
Generic Name Dose Route Start Last Admin
Trade Name Freq PRN Reason Stop Dose Admin
Acetaminophen 650 mg 11/19/24 22:20
Acetaminophen 325 Mg Tablet PO 12/17/24 22:19
Q4HPRN PRN
mild pain/RODGERS/temp> 100.4F
Bisacodyl 10 mg 11/19/24 22:20
Bisacodyl 10 Mg Rectal Suppository RECTAL 12/17/24 22:19
[id number] PRN
constipation
Carbamazepine 200 mg 11/20/24 08:00 11/20/24 08:14
Carbamazepine 100 Mg Extended Release (12 Hour) Tablet PO 12/18/24 07:59 200 mg
BID RIVERA Administration
Enoxaparin Sodium 40 mg 11/20/24 18:00
Enoxaparin Sodium 40 Mg/0.4 Ml Syringe SC 12/18/24 17:59
QPM RIVERA
Acyclovir Sodium 811 mg/ 266.22 mls @ 250 mls/hr 11/20/24 04:00 11/20/24 04:18
Sodium Chloride IV 11/30/24 03:59 266.22 mls
Q8H RIVERA Administration
Levothyroxine Sodium 75 mcg 11/20/24 06:00 11/20/24 06:25
Levothyroxine 75 Mcg Tablet PO 12/18/24 05:59 75 mcg
DAILY @ 0600 RIVERA Administration
Ondansetron HCl 4 mg 11/19/24 22:20
Ondansetron 4 Mg/2 Ml Vial IV 12/17/24 22:19
Q6HPRN PRN
nausea and vomiting
Oxycodone HCl 5 mg 11/19/24 22:20
Oxycodone 5 Mg Regular Release Tablet PO 12/03/24 22:19
Q4HPRN PRN
moderate pain
Polyethylene Glycol 17 grams 11/19/24 22:20
Polyethylene Glycol Powder 17 Grams Packet PO 12/17/24 22:19
DAILYPRN PRN
constipation
Senna/Docusate Sodium 1 tablet 11/19/24 22:20
Docusate W/Senna (Karly-Colace) Tablet PO 12/17/24 22:19
BIDPRN PRN
constipation
Sodium Chloride 0 flush 11/19/24 23:00
Sodium Chloride 0.9% (Flush) Syringe IV 12/17/24 22:59
PER PROTOCOL RIVERA
Home Medications
-
Home Medications
carbamazepine 200 mg capsule,extended release [id number] 200 mg PO BID #30 caps 11/13/24
[2024-11-20 10:45] LABS: INR 0.96; PT 13.1 Sec (11.4-14.6)
[2024-11-20 10:53] LABS: Tegretol (Carbamazepine) < 3.0 ug/ml (4-12)
[2024-11-20 11:30] LABS: Erythrocyte Sed Rate 20 mm/hour (0-20)
[2024-11-20 12:11] LABS: Folate 10.3 ng/ml (2.76-20); Vitamin B12 324 pg/ml (239-931)
[2024-11-20 12:33] LABS: Amphetamines Negative (Negative); Barbiturates Negative (Negative); Benzodiazepines Negative (Negative); Buprenorphine Negative (Negative); Cocaine Negative (Negative); Marijuana Negative (Negative); Methadone Negative (Negative); Methamphetamines Negative (Negative); Opiates Negative (Negative); Phencyclidine Negative (Negative); Tricyclic Antidepressants Negative (Negative)
[2024-11-20] MEDS: TYLENOL 650 MG PO ×2 (12:47→20:41)
--- NOTE | 2024-11-20 16:17 | CON.ID ---
Consultation
-
Date/Time Consultation Requested: 11/20/24 6:52
Date/Time Consultation Performed: 11/20/24 16:18
Requesting Provider: Dr Mattson
Performing Provider: Dr Castillo
Reason for Consultation: possible herpes encephalitis
Chief Complaint / Past History
Chief Complaint
Memory difficulties
History of Present Illness
Ms Mena is a 59 year old female with history of a recent bout of levi urbina syndrome with periauricular vesicular rash, started on valacyclovir, severe headache started a few days ago, started tegratol - later switched to gabapentin, then over the
last several days with slurred speech, confusion and memory loss. Denies: headache at this time, neck stiffness, tinnitius. No fevers. Rash is note, vesicular in the hair line - not fully crusted
Since arrival here patient has been afebrile, bp stable, wbc initially 13 now 9.4, hgb 11, plt 221, cr 0.7, crp 6.6, t bili 0.6, ast 17, alt 17, alk phos 76, brain MRI suggestive of mild meningitis, undergoing LP now, blood cultures x2 in progress,
was started on acyclovir, ID is consulted for assistance with management.
Past History
Additional Past Medical History:
hypothyroid
Additional Past Surgical History:
orthopedic
Allergy History:
No Known Allergies Allergy (Verified 11/19/24 15:20)
Medications Reviewed: Yes
Social History
Tobacco: Non-Smoker
Alcohol: None
Drug: None
Family History
Family History: Not Pertinent
Review of Systems
Review of Systems
General: Negative Fever or Chills
All systems: All other systems were reviewed and were negative
Vital Signs
Temp Pulse Resp BP Pulse Ox
98.2 F 88 18 146/81 97
11/20/24 15:36 11/20/24 15:36 11/20/24 15:36 11/20/24 15:36 11/20/24 15:36
Physical Exam
Physical Exam
Constitutional: No Acute Distress and Acutely Ill
Cardiovascular: Regular Rate and S1/S2; Negative Murmur or Rub
Pulmonary: Clear and Symmetric; Negative Wheezes, Rales or Rhonchi
Gastrointestinal: Soft, Non Tender, Non Distended and Normal Bowel Sounds
Skin: Warm, Dry and Rash (open vesicular rash in the right scalp); Negative Jaundice
Neurological: Awake and Alert
Lab / Diagnostic Study Results
11/20/24 06:43
11/20/24 06:43
Abs Immat Gran (auto) 0.1 10^3/uL (0-0.05) H 11/19/24 15:32
Absolute Neuts (auto) 10.3 10^3/uL (1.4-6.5) H 11/19/24 15:32
Absolute Lymphs (auto) 2.2 10^3/uL (1.2-3.4) 11/19/24 15:32
Absolute Monos (auto) 0.5 10^3/uL (0.1-0.6) 11/19/24 15:32
Absolute Basos (auto) 0.0 10^3/uL (0-0.2) 11/19/24 15:32
Immature Gran % 0.8 % (0-0.5) H 11/19/24 15:32
Neutrophils % 78.4 % (42.2-75.2) H 11/19/24 15:32
Lymphocytes % 16.6 % (20.5-51.1) L 11/19/24 15:32
Monocytes % 4.0 % (1.7-9.3) 11/19/24 15:32
Eosinophils % 0.0 % (0-6) 11/19/24 15:32
Basophils % 0.2 % (0-2) 11/19/24 15:32
ESR 20 mm/hour (0-20) 11/20/24 10:25
PT 13.1 Sec (11.4-14.6) 11/20/24 10:25
INR 0.96 11/20/24 10:25
Lactic Acid Cancelled 11/19/24 23:15
C-Reactive Protein 6.60 mg/L (0.0-10.00) 11/20/24 10:25
Ur Squamous Epith Cells 0-2 /LPF (Few) 11/19/24 15:34
Microbiology Results
Micro:
11/19/24 20:36 Blood Culture - Pending
Blood/Venous
11/19/24 22:31 Blood Culture - Pending
Blood/Venous
Assessment / Plan
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
Recent Levi Urbina Syndrome
- awaiting csf, undergoing LP now - will follow up
- MRI brain consistent with mild meningitis
- history very suggestive of VZV encephalitis
- appreciate pharmacy assistance with dose adjusting acyclovir - continue
[2024-11-20 16:47] LABS: Lyme Antibody Screen, EIA Negative (Negative)
--- NOTE | 2024-11-20 17:15 | PTCARENOTE ---
11/20- Patient transferred and oriented to unit without issue. AAOX3, balanced steady gait. Skin CDI except for a superficial abrasion on R-cheek. +[id number]. CSF results back with critically high WBCs- notified Physician. Patient denies any
current needs at this time.
[2024-11-20 17:17] LABS: CSF Clarity Clear; CSF Color Colorless; White Cell Count/CSF 477 mm^3 (0-5)
[2024-11-20 17:25] LABS: CSF Tube # 4
[2024-11-20 18:15] LABS: Red Cell Count/CSF 14 mm^3; Spinal Fluid Glucose 69 mg/dl (40-70); Spinal Fluid Lymphocytes 100 %
--- NOTE | 2024-11-20 18:18 | EEGC.RPT ---
Continuous EEG Report
Recording
Start Date of Data Reviewed: 11/20/24
Done with Video Recording: Yes
Electrocardiogram: Unremarkable
Report
TECHNICAL REMARKS:��This is a technically satisfactory eighteen channel record employing 21 disc electrodes applied according to a measured international 10-20 electrode placement system.��There were no significant technical difficulties.��The study
was done on a [employer] System.
STUDY DURATION: 28 min 41 sec
MEDICATIONS:�Tegretol
CLINICAL HISTORY: This is a 59-year-old woman with encephalopathy. �This study was requested to look for epileptiform activity.
REPORT: �At the onset of the EEG, the patient is drowsy.� During wakefulness the background activity on the right consists of 8-9 Hz, impersistent, posteriorly dominant, moderate amplitude, symmetric, and rhythmic activity.� Continuous left
occipital slowing is present.�Stepwise intermittent photic stimulation (1-31 Hz) did not induce additional abnormalities. Hyperventilation was not performed. No epileptiform activity was seen.� N2 sleep was reached
�
IMPRESSION: �This is an abnormal awake and drowsy EEG due to continuous left occipital slowing indicative of dysfunction at about area and mild generalized slowing suggestive of encephalopathy, nonspecific. in terms of etiology.
[2024-11-20 18:21] LABS: Spinal Fluid Protein 330 mg/dl (12-60)
[2024-11-20] MEDS: ZOVIRAX INJECTION 113 MG IV (20:28)
[2024-11-20] MEDS: SENOKOT-S 1 TABLET PO (20:41)
[2024-11-21 03:23] VITALS: BP 172/100
[2024-11-21] MEDS: ZOVIRAX INJECTION 113 MG IV (03:40)
[2024-11-21] MEDS: SYNTHROID 75 MCG PO (05:07)
[2024-11-21] MEDS: TYLENOL 650 MG PO (05:13)
--- NOTE | 2024-11-21 05:42 | PTCARENOTE ---
Patient AAOx3 in beginning of shift with noted word finding difficulty and slurred speech. Patient also noted to be very wobbly on ambulation. Once patient's son left, patient became increasingly confused and disoriented. Remains AAOx3 but more
restless and confused. Patient repeatedly setting off bed alarm, stating she cannot sleep. Patient easily redirected and goes back to bed but will set bed alarm off soon after. Patient continues with slurred speech and word finding difficulty which
frustrates her. Patient denying any pain when directly asked, but asking for Dilaudid? Updated patient and son on plan of care, continually reorienting patient to situation.
MANAGER APPLICATION Zulema Yanes notified of change in patients mental status, states MRI shows meningitis and that patient could be experiencing pain related to that. IV Zofran and IV Dilaudid ordered and administered to patient. Oncoming RN updated on patients
condition.
[2024-11-21 06:06] VITALS: BP 184/107
[2024-11-21] MEDS: ZOFRAN 4 MG IV (06:15)
[2024-11-21] MEDS: DILAUDID 0.5 MG IV (06:16)
--- NOTE | 2024-11-21 06:48 | W.PN.UPDATE ---
Update Note
Progress Note Update
Patient awakened about 0545 screaming about her head. Dilaudid x1 IV given.
--- NOTE | 2024-11-21 07:00 | PTCARENOTE ---
2/- Patient is AAOX1, Confused, Agitated, Anxious, Combative at times, Attempts to get out of bed. She is physically strong and can push her way off of the bed steadily. Patient has slurred speech, expressive aphagia, scattered thinking, yells out
and states, 'it's in my head. It's in my head. It's all in my hair. It's in my eyes. I can't see you. I see something else. It's in my head.' Patient is not able to be calmed but can be redirected back to bed. Notified Physician.
[2024-11-21 07:10] VITALS: BP 170/86
--- NOTE | 2024-11-21 07:15 | PTCARENOTE ---
2/- Patient is removing gambling monitor and refuses to place it back on. She is still disoriented, agitated but is still able to be redirected. She poured a personal belongings bag onto her bed, where this RN found several vials of personal
medications. Advised that patient denied any personal medications on Admission. Patient states, 'I don't know. These are mine. I don't know.' Hospitalist was in the room with RN. Found 2 vials of Celecoxib, 1 vial of Tramadol, 1 vial of
Gabapentin, Multivitamin supplement, Yeast supplement and Valcyclovir. I called son Mele. Mele advised he is sorry. He forgot to tell us, but he brought those in for her. He will come in this morning and pick them all up to take them home.
Updated him on his mother's mental status. Advised we may give her Ativan, if that's ok. He advised it was. Will continue to monitor.
--- NOTE | 2024-11-21 07:47 | W.PN.HOSP.TC ---
Today's Communication/Plan
-
Discharge to [facility] hospital today
Assessment / Plan
Assessment / Plan
Physical Exam
General: Agitated
HEENT: Normocephalic, Moist mucous membranes. Right sided crusted lesion with erythematous base just anterior to the ear.
Respiratory: Clear to Auscultation Bilaterally
Cardiac: S1/S2 and Regular Rhythm
GI: Soft, Non Tender and Non Distended. Positive bowel sounds.
Musculoskeletal: No Cyanosis and No Edema
Skin: Warm. Dry.
Neuro: AAO x 3. Dysarthria present - otherwise cranial nerves, strength and sensation all grossly intact -- later in the morning she was lethargic.
Psych: Calm
Assessment/Plan
VZV encephalitis
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
Mild hyponatremia
- MRI Brain with Meningitis and additional findings
- continue acyclovir
- IR consult for LP - cell count, culture, protein, glucose, viral panel ordered
- Tegretol level is low -- per neurology, Tegretol recommended to be stopped by neurology
- ID consult recommendations appreciated
- Patient sees neurologist Dr. Melo Bautista outpatient, consulted inpatient neurology here given complex neuro case: neurology recommended emergent transfer to [facility] given possibility of subclinical seizures and we do not have continuous EEG on the
weekend
- Aspirin 81 mg daily
- CTA head and neck noted
- Routine EEG
Acute Kidney Injury
-Creatinine 0.7 on admission, now 2.7
-Possibly secondary to Acyclovir
-Patient being transferred to [facility] hospital now, will likely need IV fluids once there
DVT Prophylaxis: Lovenox subq
Code status - full code
Today, I called [facility] center and spoke with neurology resident Dr. Blanca Luong who discussed patient's case with neurology attending Dr. 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 Marsha Ann accepted
the patient for emergent transfer to [facility].
More than 30 minutes spent in discharge including
Final examination of the patient
Summarizing hospital stay
Instructions for continuing care to all relevant caregivers
Preparation of discharge records, prescriptions, and referral forms
Total time spent (in minutes): 45
Anticipated Discharge: Today
Subjective/Interval History
-
Date of Service: November 21, 2024
Patient was seen and examined. This morning she was agitated and screaming.
Objective Data
-
Vital Signs:
Vital Signs
Temp Pulse Resp BP Pulse Ox
97.5 F 95 18 184/107 98
11/21/24 03:23 11/21/24 03:23 11/21/24 03:23 11/21/24 06:06 11/21/24 03:23
I&O
11/20/24 11/21/24 11/22/24
06:59 06:59 06:59
Intake Total 480 / 480
Balance 480 / 480
[2024-11-21] MEDS: TEGRETOL XR (EXTENDED RELEASE) 200 MG PO (08:10)
[2024-11-21] MEDS: NSS (PRESERVATIVE FREE) 0.125 ML IV (08:28)
[2024-11-21] MEDS: ATIVAN 0.25 MG IV (08:28)
[2024-11-21 09:17] LABS: % Basophils 0.1 % (0-2); % Immature Granulocytes 0.8 % (0-0.5); % Lymphocytes 7.9 % (20.5-51.1); % Monocytes 9.5 % (1.7-9.3); % Neutrophils 81.7 % (42.2-75.2); Absolute Immature Granulocytes 0.1 10^3/uL (0-0.05); Absolute Lymphocytes 1.2 10^3/uL (1.2-3.4); Absolute Monocytes 1.5 10^3/uL (0.1-0.6); Absolute Neutrophils 12.8 10^3/uL (1.4-6.5); Hematocrit 42.7 % (37.0-47.0); Hemoglobin 14.5 g/dL (12.0-16.0); Mean Corpuscular Hgb 30.7 pg (27.0-31.0); Mean Corpuscular Volume 90.5 fL (81.0-99.0); Mean Platelet Volume 9.9 fL (7.4-10.4); Nucleated Red Blood Cells % 0 %; Platelet Count 280 10^3/uL (130-400); Red Blood Cell Count 4.72 10^6/uL (4.20-5.40); Red Cell Dist. Width 13.8 % (11.5-14.5); White Blood Cell Count 15.6 10^3/uL (4.8-10.8)
[2024-11-21 09:20] LABS: ALT (SGPT) 21 U/L (0-35); AST (SGOT) 41 U/L (14-36); Albumin 4.3 g/dl (3.5-5.0); Alkaline Phosphatase 99 U/L (38-126); Blood Urea Nitrogen 28 mg/dl (7-17); Calcium 9.4 mg/dl (8.4-10.2); Carbon Dioxide 24 mmol/L (22-30); Chloride 95 mmol/L (98-107); Estimated Creatinine Clearance 24 ml/min; Glucose 195 mg/dl (70-99); Potassium 3.5 mmol/L (3.5-5.1); Sodium 132 mmol/L (135-145); Total Bilirubin 0.9 mg/dl (0.2-1.3); Total Protein 7.2 g/dl (6.3-8.2); eGFR 19.58
--- NOTE | 2024-11-21 11:35 | W.PN.NEURO.1 ---
Today's Communication / Plan
-
.
Subjective/Objective
Subjective Data
Date of Service: November 21, 2024
Neurology follow-up note
24h events: Continues to be hypertensive up to 184/107, agitated in the morning. Received 0.25 mg of Lorazepam at 08:28 am.
No reports of seizures.
Labs: WBCs�15.6, sodium�132, glucose�195, creatinine�0.7�2.7, normal ESR,
CSF(11/20/2024) WBCs�477 (lymphocytes�100), RBCs�14, 14�330. Varicella zoster virus -detected
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
PMH: hypothyroidism, OA, vitamin D deficiency
PSH: B/L JAMES 07/23/24, L5-S1 JAMES 06/30/24
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
FH: Father from cancer, mother from COVID
All: Nitrofurantoin, gabapentin
ROS: Unable due to encephalopathy
General: In no acute distress.
Cardio: Regular rate . Extremities are without cyanosis or edema.
Neuro:
Mental Status: Lethargic, requires constant verbal and tactile stimulation to wake up. Oriented to name.
Cranial Nerves: Orthophoric primary gaze. Pupils are equally round and reactive to light. No nystagmus. Face symmetric. Severe dysarthria.
Motor: Moves all limbs within bed plane with painful stimuli
Reflexes: 3+ throughout. Positive Suman's bilaterally.
Coordination: No tremors myoclonic movements
Gait: deferred
Assessment and Plan:
I. VZV encephalitis
II. Multifactorial encephalopathy( infectious, vascular, metabolic (uremia), toxic)
III. 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
IV. Mild hyponatremia
-Aspiration precautions
-Blood pressure goal�normotension
-ABG
-DC Tegretol
-ID follow-up
-Transfer to a facility with continuous EEG availability on weekend
-DVT prophylaxis.
-The case was discussed with patient's son
I personally reviewed all radiology and labs along with past medical records pertinent to current medical problems. Total time spent in patient care is 60 minutes.
Thank you for allowing us to participate in the care of this patient. We will continue to follow. Please do not hesitate to contact us with any questions or concerns.
Objective Data
Vital Signs
Temp Pulse Resp BP Pulse Ox
36.6 C 101 18 170/86 97
11/21/24 07:10 11/21/24 07:10 11/21/24 07:10 11/21/24 07:10 11/21/24 07:10
Lab Results
11/21/24 08:03
11/21/24 08:03
PT 13.1 Sec (11.4-14.6) 11/20/24 10:25
INR 0.96 11/20/24 10:25
Sodium 132 mmol/L (135-145) L 11/21/24 08:03
Potassium 3.5 mmol/L (3.5-5.1) 11/21/24 08:03
BUN 28 mg/dl (7-17) H 11/21/24 08:03
Glucose 195 mg/dl (70-99) H 11/21/24 08:03
Calcium 9.4 mg/dl (8.4-10.2) 11/21/24 08:03
Vitamin B12 324 pg/ml (239-931) 11/20/24 10:25
Ur Buprenorphine Negative (Negative) 11/19/24 15:34
Patient Allergies
No Known Allergies Allergy (Verified 11/19/24 15:20)
Vital Signs and Labs
-
Vital Signs and Labs:
Vital Signs
Temp Pulse Resp BP Pulse Ox
36.6 C 101 18 170/86 97
11/21/24 07:10 11/21/24 07:10 11/21/24 07:10 11/21/24 07:10 11/21/24 07:10
Lab Results
11/21/24 08:03
11/21/24 08:03
PT 13.1 Sec (11.4-14.6) 11/20/24 10:25
INR 0.96 11/20/24 10:25
Sodium 132 mmol/L (135-145) L 11/21/24 08:03
Potassium 3.5 mmol/L (3.5-5.1) 11/21/24 08:03
BUN 28 mg/dl (7-17) H 11/21/24 08:03
Glucose 195 mg/dl (70-99) H 11/21/24 08:03
Calcium 9.4 mg/dl (8.4-10.2) 11/21/24 08:03
Vitamin B12 324 pg/ml (239-931) 11/20/24 10:25
Ur Buprenorphine Negative (Negative) 11/19/24 15:34
Medications
-
Medications:
Generic Name Dose Route Start Last Admin
Trade Name Freq PRN Reason Stop Dose Admin
Acetaminophen 650 mg 11/19/24 22:20 11/21/24 05:13
Acetaminophen 325 Mg Tablet PO 12/17/24 22:19 650 mg
Q4HPRN PRN Administration
mild pain/RODGERS/temp> 100.4F
Bisacodyl 10 mg 11/19/24 22:20
Bisacodyl 10 Mg Rectal Suppository RECTAL 12/17/24 22:19
[id number] PRN
constipation
Carbamazepine 200 mg 11/20/24 08:00 11/21/24 08:10
Carbamazepine 100 Mg Extended Release (12 Hour) Tablet PO 12/18/24 07:59 200 mg
BID RIVERA Administration
Enoxaparin Sodium 40 mg 11/20/24 18:00 11/20/24 18:22
Enoxaparin Sodium 40 Mg/0.4 Ml Syringe SC 12/18/24 17:59 Not Given
QPM RIVERA
Acyclovir Sodium 650 mg/ 113 mls @ 113 mls/hr 11/20/24 20:00 11/21/24 03:40
Dextrose IV 11/30/24 19:59 113 mls
Q8H RIVERA Administration
Levothyroxine Sodium 75 mcg 11/20/24 06:00 11/21/24 05:07
Levothyroxine 75 Mcg Tablet PO 12/18/24 05:59 75 mcg
DAILY @ 0600 RIVERA Administration
Ondansetron HCl 4 mg 11/19/24 22:20 11/21/24 06:15
Ondansetron 4 Mg/2 Ml Vial IV 12/17/24 22:19 4 mg
Q6HPRN PRN Administration
nausea and vomiting
Oxycodone HCl 5 mg 11/19/24 22:20
Oxycodone 5 Mg Regular Release Tablet PO 12/03/24 22:19
Q4HPRN PRN
moderate pain
Polyethylene Glycol 17 grams 11/19/24 22:20
Polyethylene Glycol Powder 17 Grams Packet PO 12/17/24 22:19
DAILYPRN PRN
constipation
Senna/Docusate Sodium 1 tablet 11/19/24 22:20 11/20/24 20:41
Docusate W/Senna (Karly-Colace) Tablet PO 12/17/24 22:19 1 tablet
BIDPRN PRN Administration
constipation
Sodium Chloride 0 flush 11/19/24 23:00
Sodium Chloride 0.9% (Flush) Syringe IV 12/17/24 22:59
PER PROTOCOL RIVERA
Home Medications
-
Home Medications
acetaminophen 650 mg tablet,extended release (Tylenol 8 Hour) 1,300 mg PO [id number] PRN mild pain 11/20/24
celecoxib 200 mg capsule 200 mg PO DAILYPRN PRN back pain 11/20/24
gabapentin 300 mg capsule 300 mg PO TID Pain 11/20/24
levothyroxine 75 mcg tablet (Synthroid) 75 mcg PO DAILY Thyroid 11/20/24
loratadine 10 mg tablet (Claritin) 10 mg PO DAILYPRN PRN allergies 11/20/24
red yeast rice 600 mg capsule 600 mg PO DAILY Supplement 11/20/24
valacyclovir 1 gram tablet (Valtrex) 1,000 mg PO TID Infection 11/20/24
vitamin D3 125 mcg (5,000 unit)-vitamin K2 90 mcg capsule 1 cap PO DAILY Supplement 11/20/24
[2024-11-21 11:55] VITALS: BP 122/76
[2024-11-21 12:28] LABS: B.E. 0.5 mmol/L; HCO3 25.4 mmol/L (21-28); O2 Saturation % 98.9 % (94-98); PCO2 41 mmHg (32-35); PO2 89 mmHg (83-108)
--- NOTE | 2024-11-21 12:45 | PTCARENOTE ---
11/21- Called report to [facility] nurses who are to receive patient. Advised she has Acyclovir ordered for noon, so as per Physician, she must receive the Acyclovir STAT when she arrives if possible. Nurses at [facility] verbalized understanding.
[2024-11-21] MEDS: ZOVIRAX INJECTION IV (12:58)
--- NOTE | 2024-11-21 13:42 | CM ---
Plan is for pt to transfer to [place] today via helicopter. Bed is available.
Pt seen bedside w/ [id number], Nita. Pt was not awake, information obtained from Nita.
Pt lives w/ her son, Mele, in 2nd flr apartment, no elevators, 20 steps to get to apartment. Pt is independent w/ ambulating, per Nita, pt has a cane from a fx but she doesn't use it daily to walk.
Denies SNF/VN/PT hx. No current OP or home services
Address, points of contact and insurance verified
PCP: Dr. Blandon
Pharmacy: [facility]
Plan: Transfer to [place]
== END 2024-11-21 13:29 | disposition short-term general hospital (02) | DRG 74 ==
LOC: 4 WEST ACU 22:04
PROVIDERS: Physician Assistant; Radiology Diagnostic Radiology; ADMITTING PHYSICIAN Internal Medicine; ATTENDING PHYSICIAN Hospitalist; CONSULT PHYSICIAN Psychiatry & Neurology Neurology; CONSULT PHYSICIAN Student in an Organized Health Care Education/Training Program; EMERGENCY PHYSICIAN Student in an Organized Health Care Education/Training Program; FAMILY PHYSICIAN Family Medicine
PROC: 009U3ZX Drainage of Spinal Canal, Percutaneous Approach, Diagnostic (ICD-10-PCS; 2024-11-20)
DX: B02.0 Zoster encephalitis (principal); G93.49 Other encephalopathy; E87.1 Hypo-osmolality and hyponatremia; N17.9 Acute kidney failure, unspecified; E03.9 Hypothyroidism, unspecified; I67.1 Cerebral aneurysm, nonruptured; Z79.890 Hormone replacement therapy
CPT/HCPCS: 36600; 62328; 70496; 70498; 70553; 80048; 80053; 80156; 80306; 81003; 81015; 82607; 82746; 82805; 82945; 83605; 84157; 84443; 85025; 85027; 85610; 85652; 86140; 86618; 87015; 87040; 87070; 87205; 87483; 89051; 93005; 95816; 96365; 99285; Q9967

== ENCOUNTER → 2025-05-20 13:46 | Outpatient (REF) | payer OTHER, SELFPAY | LOC: PAVMRI 13:46 | PROVIDERS: ATTENDING PHYSICIAN Otolaryngology Facial Plastic Surgery | DX: D11.0 Benign neoplasm of parotid gland (principal) | CPT/HCPCS: 70543; A9575 ==

== ENCOUNTER → 2025-09-07 13:10 | Outpatient (REF) | payer OTHER, SELFPAY ==
[2025-09-07 13:35] VITALS: BP 154/74; BP_SYST 92
[2025-09-07 14:59] VITALS: BP 147/76; BP_SYST 88
== END ==
LOC: RADI 13:10
PROVIDERS: ATTENDING PHYSICIAN Student in an Organized Health Care Education/Training Program
DX: D11.0 Benign neoplasm of parotid gland (principal)
CPT/HCPCS: 42400; 76942; 88173; 88305

== ENCOUNTER → 2025-09-28 08:05 | Outpatient (REF) | payer OTHER, SELFPAY | LOC: WDC 08:05 | PROVIDERS: ATTENDING PHYSICIAN Physician Assistant Medical | DX: Z12.31 Encounter for screening mammogram for malignant neoplasm of breast (principal) | CPT/HCPCS: 77063; 77067 ==